=== PATIENT | female | born 1965 | race Caucasian/White ===

== ENCOUNTER 2023-12-10 21:21 | Emergency (ER) | payer SELFPAY ==
[~2023-12-10] VITALS: Ht 172.7 cm; Wt 115.5 kg
[2023-12-10 21:27] VITALS: TEMP 97.8
[2023-12-10] MEDS ORDERED: LISI-658 PO (21:47)
[2023-12-10] MEDS: ACETAMINOPHEN 500 MG TABLET PO ONE (23:44)
[2023-12-10] MEDS: KETOROLAC TROMETHAMINE 30 MG/ML VIAL IM ONE (23:44)
[2023-12-10] MEDS: LIDOCAINE 5% TRANSDERMAL PATCH TD ONE (23:45)
[2023-12-11] MEDS ORDERED: IBUP-1492 PO (00:06)
[2023-12-11] MEDS ORDERED: ACET-3385 PO (00:06)
[2023-12-11] MEDS ORDERED: LIDO700A15 TP (00:06)
[2023-12-11 00:20] VITALS: BP 133/66; PULSE 70; RESP 16
[2023-12-11] MEDS ORDERED: LOSA-381 PO (12:42)
[2023-12-11] MEDS ORDERED: TRAM50TA5 PO (20:57)
== END 2023-12-11 00:57 | disposition home or self-care (01) ==
LOC: EMS 21:27
DX: G89.29 Other chronic pain (principal); M54.50 Low back pain, unspecified; I10 Essential (primary) hypertension
CPT/HCPCS: 99283; 96372; J1885

== ENCOUNTER 2023-12-11 12:34 | Emergency (ER) | payer MEDICAID ==
[~2023-12-11] VITALS: Ht 175.3 cm; Wt 81.8 kg
[~2023-12-11 12:34] MED LIST: ACET-3385 PO; IBUP-1492 PO; LIDO700A15 TP; LISI-658 PO
[2023-12-11 12:42] VITALS: TEMP 97.6
[2023-12-11] MEDS ORDERED: LOSA-381 PO (12:42)
[2023-12-11] MEDS: LIDOCAINE 5% TRANSDERMAL PATCH TD ONE (17:39)
[2023-12-11] MEDS: TraMADol HCL 50 MG TABLET PO ONE (17:39)
[2023-12-11] MEDS ORDERED: TRAM50TA5 PO (20:57)
[2023-12-11 21:05] VITALS: BP 125/62; PULSE 65; RESP 19
== END 2023-12-11 21:07 | disposition home or self-care (01) ==
LOC: EMS 13:20
DX: M54.12 Radiculopathy, cervical region (principal); I10 Essential (primary) hypertension
CPT/HCPCS: 72040; 99283